=== PATIENT | male | born 1975 | race American Indian/Alaskan Native ===

== ENCOUNTER 2016-05-19 21:01 | Emergency (ER) | payer SELFPAY ==
[2016-05-19] MEDS ORDERED: TORADOL IV ONE (21:16)
[2016-05-20 00:09] LABS: Bilirubin,Urine NEG (Negative); Blood,Urine NEG (Negative); Ketones,Urine NEG (Negative); Leukocyte Esterase,Urine NEG (Negative); Mucus,Urine 3+ /HPF; Nitrite,Urine NEG (Negative); Urobilinogen,Urine < 2.0 mg/dL (<2.0)
[2016-05-20 01:02] VITALS: BP 145/89
--- NOTE | 2016-05-20 01:26 | Emergency Department Report ---
ED Male HPI - General Chief complaint: Abdominal Pain Stated complaint: FLANK PAIN Time Seen by Provider: 05/20/16 01:17 Source: patient Mode of arrival: Wheelchair Limitations: No Limitations - History of Present Illness Initial comments: This is a pleasant 41-year-old who reports right flank pain extending towards the right groin that started suddenly approximately 1 hour prior to arrival. He denies any history of kidney stones in the past. He denies any hematuria. He indicates that he was working quite hard today and did not have a good oral intake or fluid intake. Patient does report he gave me a urine specimen at triage. No trauma is reported. Upon my evaluation of the patient he indicates his pain is completely gone. He denies any penile discharge he denies any testicular tenderness associated with this. MD Complaint: other (flank pains) Onset/Timin -: Sudden Location: right flank Radiation: other (R groin) Severity scale (0 -10): 10 Quality: aching Consistency: constant Improves with: none denies: discharge, swelling, rash, urinary retention, nausea/vomiting - Related Data Previous Rx's Medication Instructions Recorded Last Taken Type Naproxen [Naprosyn] 500 mg PO BID #20 tablet 05/20/16 Unknown Rx Allergies Allergy/AdvReac Type Severity Reaction Status Date / Time No Known Allergies Allergy Verified 05/19/16 21:10 ED Review of Systems ROS: Stated complaint: FLANK PAIN Other details as noted in HPI Constitutional: denies: chills, fever Eyes: denies: eye pain, eye discharge, vision change ENT: denies: ear pain, throat pain Respiratory: denies: cough, shortness of breath, wheezing Cardiovascular: denies: chest pain, palpitations Endocrine: no symptoms reported Gastrointestinal: denies: abdominal pain, nausea, diarrhea Genitourinary: other (R flank pain). denies: urgency, dysuria, hematuria, testicular pain Musculoskeletal: denies: back pain, joint swelling, arthralgia Skin: denies: rash, lesions Neurological: denies: headache, weakness, paresthesias Psychiatric: denies: anxiety, depression Hematological/Lymphatic: denies: easy bleeding, easy bruising ED Past Medical Hx - Past Medical History Previous Medical History?: Yes Hx Hypertension: Yes - Surgical History Past Surgical History?: No - Social History Smoking Status: Never Smoker Substance Use Type: None - Medications Home Medications: Home Medications Medication Instructions Recorded Confirmed Last Taken Type Naproxen [Naprosyn] 500 mg PO BID #20 tablet 05/20/16 Unknown Rx ED Physical Exam - General Limitations: No Limitations General appearance: alert, in no apparent distress - Head Head exam: Present: atraumatic, normocephalic - Eye Eye exam: Present: normal appearance - ENT ENT exam: Present: mucous membranes moist - Neck Neck exam: Present: normal inspection - Respiratory Respiratory exam: Present: normal lung sounds bilaterally. Absent: respiratory distress - Cardiovascular Cardiovascular Exam: Present: regular rate, normal rhythm. Absent: systolic murmur, diastolic murmur, rubs, gallop - GI/Abdominal GI/Abdominal exam: Present: soft, normal bowel sounds - Rectal Rectal exam: Present: deferred - Extremities Exam Extremities exam: Present: normal inspection - Back Exam Back exam: Present: normal inspection - Neurological Exam Neurological exam: Present: alert, oriented X3 - Psychiatric Psychiatric exam: Present: normal affect, normal mood - Skin Skin exam: Present: warm, dry, intact, normal color. Absent: rash ED Course Vital Signs 05/19/16 05/20/16 21:10 01:01 Temperature 98.0 F Pulse Rate 87 97 H Respiratory 24 16 Rate Blood Pressure 122/74 Blood Pressure 145/89 [Left] O2 Sat by Pulse 98 97 Oximetry - Reevaluation(s) Reevaluation #1: 05/20/16 06:23 Begin at the time of my evaluation, the patient is pain-free. His examination is completely normal. In evaluation of his lab studies, he has a normal urinalysis. I have a low suspicion for kidney stone given his presentation. He has no prior history of kidney stone. He has no hematuria. His pain is completely resolved. I am more suspicious of maybe some renal colic due to mild dehydration. This doesn't make perfect sense but it seems more plausible to me at this time. Regardless patient is safe for home I did encourage him to return if there is any acute worsening. Pt is agreeable with the plan. Critical care attestation.: If time is entered above; I have spent that time in minutes in the direct care of this critically ill patient, excluding procedure time. ED Disposition Clinical Impression: Flank pain Disposition: DISCHARGED TO HOME OR SELFCARE Is pt being admited?: No Does the pt Need Aspirin: No Condition: Stable Instructions: Musculoskeletal Pain (ED) Additional Instructions: Activities as tolerated. Take naprosyn if pains return. Drink plenty of fluids. Prescriptions: Naproxen [Naprosyn] 500 mg PO BID #20 tablet Referrals: EMMANUEL ENCINAS MD [Staff Physician] - 3-5 Days Time of Disposition: 01:25
== END 2016-05-20 01:31 | disposition home or self-care (01) ==
LOC: ED 21:01
DX: R10.30 Lower abdominal pain, unspecified (principal); I10 Essential (primary) hypertension
CPT/HCPCS: 81001; 96374; 99283; J1885